=== PATIENT | female | born 1940 | race Caucasian/White ===

== ENCOUNTER 2016-11-05 12:44 | Day surgery (SDC) | payer MEDICARE ==
[~2016-11-05 12:44] MED LIST: ALPR0.5T8 PO; AMLO5TAB2 PO; DICY10CA13 PO; DILT60TA PO; FLUO40CA PO; HYDR-4003 PO; LAMO25TA PO; LISI10TA PO; NITR0.4T6 SL; OMEP20CA11 PO; ONDA-53 PO; POLY17PO6 PO
[2016-11-05] MEDS ORDERED: Lidocaine Topical 2% 30 mL Jelly ONE (13:05)
== END 2016-11-05 23:59 | disposition home or self-care (01) ==
LOC: END 12:44
PROVIDERS: ATTEND Surgery
DX: K44.9 Diaphragmatic hernia without obstruction or gangrene (principal)

== ENCOUNTER 2016-11-13 12:15 | Day surgery (SDC) | payer MEDICARE ==
[~2016-11-13] VITALS: Ht 167.6 cm; Wt 82.7 kg
[~2016-11-13 12:15] MED LIST changes: +fentaNYL-PF 50 mCg/mL 2 mL Inj IVPUSH PRN
[2016-11-13 12:40] VITALS: BP 144/70; PULSE 63; RESP 16; O2SAT 97
[2016-11-13 13:48] VITALS: BP 141/70; PULSE 65; RESP 16; O2SAT 95
--- NOTE | 2016-11-13 13:55 | ENDO ---
[address] [address] ENDOSCOPY PROCEDURE PATIENT: HAYES FERGUSON : 1940 MR#: [id number] ADMIT: 11/13/2016 JOB ID: [id number] DATE: 11/13/2016 PRE-PROCEDURE DIAGNOSIS: Recurrent hiatal hernia. POSTPROCEDURE DIAGNOSIS: Recurrent hiatal hernia. PROCEDURE PERFORMED: Upper endoscopy. SURGEON: Catalina Zhang M.D. INSTRUMENT: Olympus GIF H 180 J. MEDICATIONS: 1. Versed 8 mg. 2. Fentanyl 150 mcg. FINDINGS: 1. The patient has a recurrent paraesophageal hernia. Although the squamocolumnar junction and diaphragmatic hiatus were by only 2 cm, there was a clear herniation of the fundus to the side of the esophagus. GE junction was at 36 cm and diaphragm at 38 cm. 2. Otherwise normal endoscopy. DESCRIPTION OF PROCEDURE: The patient was brought to the endoscopy suite, and placed in a left lateral decubitus position. Moderate anesthesia was induced. A bite block was placed. The endoscope was advanced through the oropharynx, into the esophagus, stomach, and third portion of the duodenum. The duodenum was normal. The stomach was normal with the exception of a recurrent paraesophageal hernia as noted above. The distal esophagus was tortuous. The paraesophageal component was moderate in size. The endoscope was withdrawn. No biopsies were performed. The patient tolerated the procedure well. COMPLICATIONS: None. SPECIMENS: None. ESTIMATED BLOOD LOSS: None.
[2016-11-13 14:02] VITALS: BP 102/69; PULSE 70; O2SAT 96
== END 2016-11-13 23:59 | disposition home or self-care (01) ==
LOC: END 12:15
PROVIDERS: ATTEND Surgery
DX: K44.9 Diaphragmatic hernia without obstruction or gangrene (principal); I10 Essential (primary) hypertension; Z79.899 Other long term (current) drug therapy; Z88.8 Allergy status to other drugs, medicaments and biological substances; Z91.048 Other nonmedicinal substance allergy status
CPT/HCPCS: 43235; 99153; G0500; J2250; J3010; J7030